=== PATIENT | female | born 1975 | race Caucasian/White ===

== ENCOUNTER 2018-06-19 16:12 | Emergency (ER) | payer BC ==
--- NOTE | 2018-06-19 16:48 | UC ---
Throat Pain/Nasal Mic HPI - HPI Summary HPI Summary: 42 yo female presents with 1 week of sore throat, feeling hot/cold, and increased fatigue. She tells me that she donates blood every 8 weeks and went to donate blood today, but they would not allow her to do so as she had a temperature of 99.4F. She has not been taking anything OTC for her symptoms. She mentions that she has thyroid disease, but recently had her thyroid checked and everything was fine. Her PCP also checks her "blood levels and iron" often as pt donates blood frequently and everything was normal. She does endorse some intermittent runny nose and post nasal drip. Denies cough, rash, abdominal pain , n/v. - History of Current Complaint Stated Complaint: FEVER Time Seen by Provider: 06/19/18 16:48 Hx Obtained From: Patient Hx Last Menstrual Period: 06/23/16 Onset/Duration: Gradual Onset Severity: Mild Pain Intensity: 3 Pain Scale Used: 0-10 Numeric - Allergies/Home Medications Allergies/Adverse Reactions: Allergies Allergy/AdvReac Type Severity Reaction Status Date / Time No Known Allergies Allergy Verified 06/19/18 17:07 PMH/Surg Hx/FS Hx/Imm Hx Endocrine History: Hypothyroidism Psychological History: Anxiety, Depression - Surgical History Surgical History: Yes Surgery Procedure, Year, and Place: October 08, 2011 and 2014 - Family History Known Family History: Positive: Cardiac Disease, Diabetes - Social History Occupation: Employed Full-time Lives: With Family Alcohol Use: Rare Substance Use Type: None Smoking Status (MU): Never Smoked Tobacco - Immunization History Most Recent Influenza Vaccination: [id number] Most Recent Tetanus Shot: 04/27/14 Most Recent Pneumonia Vaccination: none Review of Systems All Other Systems Reviewed And Are Negative: Yes Constitutional: Positive: Fatigue Skin: Positive: Negative Eyes: Positive: Negative ENT: Positive: Sore Throat, Nasal Discharge Respiratory: Positive: Negative Cardiovascular: Positive: Negative Gastrointestinal: Positive: Negative Neurological: Positive: Negative Psychological: Positive: Negative Physical Exam - Summary Physical Exam Summary: GENERAL: NAD. WDWN. No pain distress. SKIN: No rashes, sores, lesions, or open wounds. HEENT: Head: AT/NC Eyes: EOM intact. Conjunctiva clear without inflammation or discharge. Ears: Hearing grossly normal. TMs intact, no bulging, erythema, or edema. Nose: Nasal mucosa pink and moist. NTTP maxillary and frontal sinus. Positive post nasal drip. Throat: Posterior oropharynx with mild erythema. No exudates or tonsillar enlargement. Uvula midline. NECK: Supple. Nontender. No lymphadenopathy. CHEST: CTAB. No r/r/w. No accessory muscle use. Breathing comfortably and in no distress. CV: RRR. Without m/r/g. Pulses intact. Cap refill <2seconds NEURO: Alert. PSYCH: Age appropriate behavior. Triage Information Reviewed: Yes Vital Signs: Vital Signs: Temp Pulse Resp BP Pulse Ox 99.1 F 63 20 102/67 98 06/19/18 17:02 06/19/18 17:02 06/19/18 17:02 06/19/18 17:02 06/19/18 17:02 Laboratory Tests 06/19/18 17:13 Group A Strep Rapid Negative Vital Signs Reviewed: Yes Throat Pain/Nasal Course/Dx - Course Course Of Treatment: POC strep negative. Discussed obtaining blood work today to further evaluate pt' s symptoms, but she declined and prefers to f/u with her PCP if symptoms do not improve. Suspect allergies could be causing her runny nose and post nasal drip, which - in turn - could be causing her sore throat. Will try her with claritin and have her f/u with her PCP if symptoms do not improve or if they worsen. - Differential Dx/Diagnosis Provider Diagnosis: Sore throat Discharge - Sign-Out/Discharge Documenting (check all that apply): Patient Departure All imaging exams completed and their final reports reviewed: No Studies - Discharge Plan Condition: Stable Disposition: HOME Prescriptions: Loratadine/Pseudoephedrine [Claritin-D 12 Hour] 1 tab PO DAILY #30 tab Patient Education Materials: Pharyngitis (ED) Referrals: Yahaira Shaikh DO [Primary Care Provider] - Additional Instructions: If you develop a fever, shortness of breath, chest pain, new or worsening symptoms - please call your PCP or go to the ED immediately. Please follow up with your primary doctor if your symptoms do not improve - Billing Disposition and Condition Condition: STABLE Disposition: Home - Attestation Statements Provider Attestation: This patient was not seen by me. I was available for consult.
[2018-06-19 17:07] VITALS: BP 102/67
== END 2018-06-19 17:41 | disposition home or self-care (01) ==
LOC: UCEAST 16:12
DX: J02.9 Acute pharyngitis, unspecified (principal); R50.9 Fever, unspecified; R53.83 Other fatigue; J34.89 Other specified disorders of nose and nasal sinuses; E03.9 Hypothyroidism, unspecified; F41.9 Anxiety disorder, unspecified; F32.9 Major depressive disorder, single episode, unspecified
CPT/HCPCS: 87651; 99212; G0463

== ENCOUNTER 2019-04-29 17:35 | Emergency (ER) | payer BC ==
[2019-04-29 18:07] VITALS: BP 126/89
--- NOTE | 2019-04-29 18:17 | UC ---
Skin Complaint HPI - HPI Summary HPI Summary: 43 yo female presents with rash. She tells me that over the last 4 days she has been noticed discomfort to the back of her head/neck and noticed small tender red bumps. These have been present since that time and have not improved. States the areas seem to have scabbed. Not itchy or draining. No prodrome pain or burning. She has been under a lot of stress recently. Denies fever, chills, recent illness, headache, sore throat, lesions elsewhere. No new detergents or soaps. Noone at home ill - History of Current Complaint Chief Complaint: UCSkin Time Seen by Provider: 04/29/19 17:54 Stated Complaint: SKIN COMPLAINT Hx Last Menstrual Period: 04/01/19 Onset/Duration: Sudden Onset Onset Severity: Mild Current Severity: Mild Pain Intensity: 3 Pain Scale Used: 0-10 Numeric - Allergy/Home Medications Allergies/Adverse Reactions: Allergies Allergy/AdvReac Type Severity Reaction Status Date / Time No Known Allergies Allergy Verified 04/29/19 17:59 Home Medications: Home Medications Sertraline* [Zoloft*] 100 mg PO DAILY 11/10/15 [History Confirmed 04/29/19] Cephalexin CAP* [Keflex CAP*] 500 mg PO TID #21 cap 04/29/19 [Rx] Ibuprofen 400 mg PO ONCE PRN 04/29/19 [History Confirmed 04/29/19] Mupirocin 2% OINT* [Bactroban 2 % Oint*] 1 applic TOPICAL BID #1 tube 04/29/19 [ Rx] Progesterone, Micronized [Progesterone] 1 tab PO DAILY 04/29/19 [History Confirmed 04/29/19] PMH/Surg Hx/FS Hx/Imm Hx Psychological History: Anxiety, Depression - Surgical History Surgical History: Yes Surgery Procedure, Year, and Place: October 08, 2011 and 2014 - Family History Known Family History: Positive: Cardiac Disease, Diabetes - Social History Lives: With Family Alcohol Use: Rare Substance Use Type: None Smoking Status (MU): Never Smoked Tobacco - Immunization History Most Recent Influenza Vaccination: [id number] Most Recent Tetanus Shot: 04/27/14 Most Recent Pneumonia Vaccination: none Review of Systems All Other Systems Reviewed And Are Negative: No Constitutional: Positive: Negative Skin: Positive: Rash Eyes: Positive: Negative ENT: Positive: Negative Respiratory: Positive: Negative Cardiovascular: Positive: Negative Gastrointestinal: Positive: Negative Neurological/Mental Status: Positive: Negative Psychological: Positive: Negative Physical Exam - Summary Physical Exam Summary: GENERAL: NAD. WDWN. No pain distress. SKIN: Posterior head and neck with scattered ~dime sized lesions that are scabbed and mildly erythematous. Flat. Mildly TTP. No drainage, streaking, vesicles, pustules, or bleeding. Crosses midline. HEENT: Head: AT/NC Eyes: EOM intact. Conjunctiva clear without inflammation or discharge. Ears: Hearing grossly normal. TMs intact, no bulging, erythema, or edema. Throat: Posterior oropharynx without exudates, erythema, or tonsillar enlargement. Uvula midline. NECK: Supple. Nontender. NEURO: Alert. PSYCH: Age appropriate behavior. Triage Information Reviewed: Yes Vital Signs: Initial Vital Signs Temp 99.3 F 04/29/19 17:55 Pulse 78 04/29/19 17:55 Resp 15 04/29/19 17:55 BP 126/89 04/29/19 17:55 Pulse Ox 100 04/29/19 17:55 Vital Signs Reviewed: Yes Course/Dx - Course Course Of Treatment: Discussed with Dr. Zaldivar. Favor skin staph infection at this time. Culture obtained, but I am unsure how beneficial this will be as the lesions are dry. She has no known hx of MRSA, therefore will treat her with keflex and bactroban and have her be rechecked if no improvement or worsening. - Diagnoses Provider Diagnosis: Rash of neck Discharge ED - Sign-Out/Discharge Documenting (check all that apply): Patient Departure All imaging exams completed and their final reports reviewed: No Studies - Discharge Plan Condition: Stable Disposition: HOME Prescriptions: Cephalexin CAP* [Keflex CAP*] 500 mg PO TID #21 cap Mupirocin 2% OINT* [Bactroban 2 % Oint*] 1 applic TOPICAL BID #1 tube Referrals: Yahaira Shaikh DO [Primary Care Provider] - Additional Instructions: The spots on the back of your head/neck appear consistent with a Staph infection - please take the antibiotic and use the ointment for 1 week. Recheck if no change or worsening - Billing Disposition and Condition Condition: STABLE Disposition: Home - Attestation Statements Provider Attestation: Chart reviewed. SILVIA
== END 2019-04-29 18:25 | disposition home or self-care (01) ==
LOC: UCEAST 17:35
DX: R21 Rash and other nonspecific skin eruption (principal); F41.9 Anxiety disorder, unspecified; F32.9 Major depressive disorder, single episode, unspecified; Z79.899 Other long term (current) drug therapy
CPT/HCPCS: 87070; 87077; 87186; 87205; 87640; 87641; 99212; G0463